=== PATIENT | female | born 1995 | race American Indian/Alaskan Native ===

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

== ENCOUNTER 2018-05-27 20:54 | Inpatient (IN) | payer OTHER ==
[2018-05-27] MEDS ORDERED: XYLOCAINE 2% INFILTRATI ONE (21:12)
[2018-05-27] MEDS ORDERED: MINERAL OIL PO PRN (21:12)
[2018-05-27] MEDS ORDERED: STADOL IV PRN (21:12)
[2018-05-27] MEDS ORDERED: AMPICILLIN/NS 2 GM/100 ML 2 GM/100 ML BAG IV ONE (21:12)
[2018-05-27] MEDS ORDERED: BRETHINE IVP PRN (21:12)
[2018-05-27] MEDS ORDERED: BRETHINE SUB-Q PRN (21:12)
[2018-05-27 21:37] LABS: Hematocrit 38.8 % (30.3-42.9); Hemoglobin 13.3 gm/dl (10.1-14.3); Mean Corpuscular HGB Conc 34 % (30-34); Mean Corpuscular Volume 88 fl (79-97); Platelet Count 212 K/mm3 (140-440); Red Cell Distribution Width 16.8 % (13.2-15.2)
[2018-05-27] MEDS ORDERED: PITOCin/NS 20 UNIT/1000ML DRIP 20 UNITS/1,000 ML BAG IV SCH (22:00)
[2018-05-27] MEDS ORDERED: LACTATED RINGERS 1,000 ML IV SCH (22:00)
[2018-05-27] MEDS ORDERED: XYLOCAINE MPF 2% ONE (22:37)
[2018-05-27] MEDS ORDERED: SUBLIMAZE ONE (22:37)
[2018-05-27] MEDS ORDERED: fentaNYL-BUPIV 2 MCG/ML-0.125% 200 MCG/100 ML BAG EPIDURAL SCH (23:00)
[2018-05-27] MEDS ORDERED: NARCAN 2 MG/2 ML IV PRN (23:00)
--- NOTE | 2018-05-27 23:00 | Anesthesia Consultation ---
Anesthesia Consult and Med Hx Date of service: 05/27/18 - Airway Anesthetic Teeth Evaluation: Good ROM Head & Neck: Adequate Mental/Hyoid Distance: Adequate Mallampati Class: Class I Intubation Access Assessment: Good - Pulmonary Exam CTA: Yes - Cardiac Exam Cardiac Exam: RRR - Pre-Operative Health Status ASA Pre-Surgery Classification: ASA2 Proposed Anesthetic Plan: Epidural - Pulmonary Hx Asthma: No Hx Respiratory Symptoms: No COPD: No Hx Pneumonia: No - Cardiovascular System Hx Hypertension: No Hx Coronary Artery Disease: No - Central Nervous System Hx Neuromuscular Disorder: No Hx Seizures: No Hx Psychiatric Problems: No - Gastrointestinal Hx Ulcer: No Hx Gastroesophageal Reflux Disease: No - Endocrine Hx Renal Disease: No Hx End Stage Renal Disease: No Hx Cirrhosis: No Hx Liver Disease: No Hx Insulin Dependent Diabetes: No Hx Non-Insulin Dependent Diabetes: No Hx Thyroid Disease: No Hx Hypothyroidism: No Hx Hyperthyroidism: No - Hematic Hx Anemia: Yes Hx Sickle Cell Disease: No - Other Systems Hx Alcohol Use: No Hx Substance Use: No Hx Cancer: No Hx Obesity: No
[2018-05-28] MEDS ORDERED: AMPICILLIN/NS 1 GM/50 ML 1 GM/50 ML BAG IV SCH (02:00)
[2018-05-28] MEDS ORDERED: XYLOCAINE MPF 2% ONE (03:18)
[2018-05-28] MEDS ORDERED: SUBLIMAZE ONE (03:18)
--- NOTE | 2018-05-28 03:38 | History and Physical Report ---
History of Present Illness Date of examination: 05/28/18 Date of admission: 05/27/18 21:15 Chief complaint: leakage of fluid History of present illness: 22y/o @ 38+3 weeks presents with leakage of fluid. The patient is having irregular uterine contractions. Her course is complicated by multiple STD exposures during the . Past History Past Medical History: no pertinent history Past Surgical History: no surgical history [employer] History: chlamydia, gonorrhea, herpes Social history: single - Obstetrical History Expected Date of Delivery: 06/08/18 Actual Gestation: 46 Week(s) 4 Day(s) : 1 Para: 0 Hx # Term Pregnancies: 0 Number of Pregnancies: 0 Spontaneous Abortions: 0 Induced : 0 Number of Living Children: 0 Medications and Allergies Allergies Allergy/AdvReac Type Severity Reaction Status Date / Time No Known Allergies Allergy Verified 06/16/16 16:17 Home Medications Medication Instructions Recorded Confirmed Last Taken Type Ferrous Sulfate [Iron] 325 mg PO DAILY 05/26/18 05/26/18 05/25/18 History Vit,Calc76/Iron/Folic 1 tab PO DAILY 05/26/18 05/26/18 05/25/18 History [Pnv 29-1 Tablet] metroNIDAZOLE [Flagyl] 500 mg PO Q12HR 05/26/18 05/26/18 05/25/18 History valACYclovir [Valtrex] 500 mg PO BID 05/26/18 05/26/18 05/25/18 History HYDROcodone/APAP 5-325 [[place] 1 each PO Q6HR PRN #20 tablet 05/29/18 Unknown Rx 5/325] Ibuprofen [Motrin] 800 mg PO Q8HR PRN #60 tablet 05/29/18 Unknown Rx Active Meds: Active Medications Butorphanol Tartrate (Stadol) 2 mg IV Q2H PRN PRN Reason: Pain , Severe (7-10) Last Admin: 05/27/18 21:35 Dose: 2 mg Documented by: Ephedrine Sulfate (Ephedrine Sulfate) 10 mg IV Q2M PRN PRN Reason: Hypotension Lactated Ringer's (Lactated Ringers) 1,000 mls @ 125 mls/hr IV DIRECT ANITA Last Admin: 05/27/18 21:30 Dose: 125 mls/hr Documented by: Oxytocin/Sodium Chloride (Pitocin/Ns 20 Unit/1000ml Drip) 20 units in 1,000 mls @ 125 mls/hr IV DIRECT ANITA Ampicillin Sodium (Ampicillin/Ns 1 Gm/50 Ml) 1 gm in 50 mls @ 100 mls/hr IV Q4HR ANITA; Protocol Last Admin: 05/28/18 01:43 Dose: 100 mls/hr Documented by: Fentanyl/Bupivacaine/Sodium Chlor (Fentanyl-Bupiv 2 Mcg/Ml-0.125%) 200 mcg in 100 mls @ 12 mls/hr EPIDURAL TITR ANITA; Protocol Last Admin: 05/27/18 23:11 Dose: 12 mls/hr Documented by: Mineral Oil (Mineral Oil) 30 ml PO QHS PRN PRN Reason: Constipation Naloxone HCl (Narcan 2 Mg/2 Ml) 0.2 mg IV Q5M PRN PRN Reason: Respiratory sedation Terbutaline Sulfate (Brethine) 0.25 mg SUB-Q ONCE PRN PRN Reason: Hyperstimulation/Hypertonicity Terbutaline Sulfate (Brethine) 0.25 mg IVP ONCE PRN PRN Reason: Hyperstimulation/Hypertonicity Review of Systems All systems: negative Genitourinary: leakage of fluid, contractions - Vital Signs Vital signs: Vital Signs Temp Pulse Resp BP 98.6 F 75 22 113/60 05/27/18 20:55 05/27/18 20:55 05/27/18 20:55 05/27/18 20:55 Temp Pulse Resp BP Pulse Ox 99.0 F 98 H 18 109/82 100 05/28/18 01:02 05/28/18 03:37 05/28/18 01:02 05/28/18 03:26 05/28/18 03:37 - Physical Exam Breasts: Positive: deferred Cardiovascular: Regular rate Lungs: Positive: Clear to auscultation Abdomen: Positive: normal appearance Results Result Diagrams: 05/28/18 15:35 Abnormal lab results 05/27/18 Range/Units 21:30 RDW 16.8 H (13.2-15.2) % All other labs normal. Assessment and Plan - Patient Problems (1) Spontaneous rupture of membranes Status: Acute Plan to address problem: admit to L&D
--- NOTE | 2018-05-28 04:53 | Procedure Note ---
OB Delivery Note - Delivery Date of Delivery: 05/28/18 Surgeon: YIMI ROJAS Estimated blood loss: 200cc - Vaginal Delivery presentation: vertex Delivery position: OA Intrapartum events: none Delivery monitor: external FHT Route of delivery: Delivery placenta: spontaneous Delivery cord: 3 umbilical vessels Episiotomy: none Delivery laceration: 1st degree Delivery repair: vicryl Anesthesia: epidural Delivery comments: Patient progressed to C/C/+1 and pushed to deliver a liveborn female with apgars of 7/8. After the infant was delivered, the was immediately placed on the patient's abdomen. Delivery was at 0433. The delivery was performed by the patient's nurse secondary to her rapid progression. The cord was then clamped and cut. The placenta delivered spontaneously intact with a 3VC at 0437. The patient sustained a midline first degree laceration repaired with 2-0 vicryl. Weight 7lbs 2oz. EBL 200ml. - Infant A at 1 minute: 7 at 5 minutes: 8 Gender: Female (weight 7lbs 2oz)
[2018-05-28] MEDS ORDERED: ZOFRAN IV PRN (04:54)
[2018-05-28] MEDS ORDERED: PHENERGAN PO PRN (04:54)
[2018-05-28] MEDS ORDERED: TYLENOL PO PRN (04:54)
[2018-05-28] MEDS ORDERED: DULCOLAX PR PRN (04:54)
[2018-05-28] MEDS ORDERED: PHENERGAN PR PRN (04:54)
[2018-05-28] MEDS ORDERED: BENADRYL PO PRN (04:54)
[2018-05-28] MEDS ORDERED: MILK OF MAGNESIA PO PRN (04:54)
[2018-05-28] MEDS ORDERED: TUCKS PAD TP PRN (04:54)
[2018-05-28] MEDS ORDERED: LANSINOH TP PRN (04:54)
[2018-05-28] MEDS ORDERED: NORCO 5/325 PO PRN (04:54)
[2018-05-28] MEDS ORDERED: SODIUM CHLORIDE FLUSH SYRINGE 10 ML IV PRN (05:00)
[2018-05-28] MEDS: IBUPROFEN PO SCH ×4 (06:21→23:47)
--- NOTE | 2018-05-28 08:19 | Post Anesthesia Evaluation ---
- Post Anesthesia Evaluation Patient Participated: Yes Airway Patent: Yes Stable Respiratory Function: Yes Nausea/Vomiting: No Temp > 96.8F: Yes Pain Manageable: Yes Adequeate Hydration: Yes Anesthesia Complications: No Block Receding Appropriately: Yes Patient on Ventilator: Yes
[2018-05-28] MEDS ORDERED: SUBLIMAZE IV ONE (09:00)
[2018-05-28 16:02] LABS: Hematocrit 30.7 % (30.3-42.9); Hemoglobin 10.3 gm/dl (10.1-14.3)
[2018-05-28] MEDS ORDERED: ROBITUSSIN PO PRN (18:29)
[2018-05-29] MEDS: IBUPROFEN PO SCH ×2 (06:57→12:22)
--- NOTE | 2018-05-29 08:51 | Progress Note ---
Assessment and Plan - Patient Problems (1) Spontaneous rupture of membranes Current Visit: Yes Status: Acute Plan to address problem: patient doing well discharge home Subjective - Subjective Date of service: 05/29/18 Interval history: Patient without complaints. States she is feeling well. Pain well controlled Patient reports: appetite normal, voiding normally, pain well controlled [place]: doing well, nursing well Objective - Vital Signs Latest vital signs: Vital Signs Temp Pulse Resp BP 05/29/18 00:30 98.6 F 64 18 104/78 05/28/18 19:30 98.7 F 77 18 114/79 05/28/18 15:41 98.1 F 79 18 112/58 Intake and Output 05/28/18 05/29/18 05/29/18 22:59 06:59 14:59 Intake Total 360 300 Output Total 500 Balance -140 300 Intake: Oral 360 Intake, Free Water 300 Output: Urine 500 Void 500 Other: Total, Intake Amount 360 Total, Output Amount 300 # Voids Void 2 - Exam Uterus: Present: normal, firm
--- NOTE | 2018-05-29 08:52 | Discharge Summary ---
Providers - Providers Date of Admission: 05/27/18 21:15 Date of discharge: 05/29/18 Attending physician: YIMI ROJAS Primary care physician: YIMI ROJAS Hospitalization Reason for admission: active labor, rupture of membranes Delivery: Discharge diagnosis: IUP at term delivered baby: female Hospital course: Patient admitted with SROM and contractions. Had a . unremarkable Condition at discharge: Good Disposition: DC-01 TO HOME OR SELFCARE - Discharge Diagnoses (1) Spontaneous rupture of membranes Status: Acute Plan - Discharge Medications Prescriptions: HYDROcodone/APAP 5-325 [[place] 5/325] 1 each PO Q6HR PRN #20 tablet PRN Reason: Pain Ibuprofen [Motrin] 800 mg PO Q8HR PRN #60 tablet PRN Reason: Pain, Mild (1-3) - Provider Discharge Summary Activity: no sex for 6 weeks, no heavy lifting 4 weeks, no strenuous exercise Diet: routine Instructions: routine Additional instructions: [] Smoking cessation referral if applicable(refer to patient education folder for contact #) [] Refer to [facility] Booklet Call your doctor immediately for: * Fever > 100.5 * Heavy vaginal bleeding ( >1 pad per hour) * Severe persistent headache * Shortness of breath * Reddened, hot, painful area to leg or breast * schedule followup in 4 weeks - Follow up plan
[2018-05-29 17:28] VITALS: BP 114/68
== END 2018-05-29 17:15 | disposition home or self-care (01) | DRG 775 ==
LOC: TRG 20:54 → LD 21:15 → OB 05-28 08:03
PROVIDERS: ADMIT Obstetrics & Gynecology; ATTEND Obstetrics & Gynecology
PROC: 10E0XZZ Delivery of Products of Conception, External Approach (ICD-10-PCS; principal; 2018-05-28)
PROC: 3E0R3BZ Introduction of Anesthetic Agent into Spinal Canal, Percutaneous Approach (ICD-10-PCS; 2018-05-28)
PROC: 00HU33Z Insertion of Infusion Device into Spinal Canal, Percutaneous Approach (ICD-10-PCS; 2018-05-28)
PROC: 0HQ9XZZ Repair Perineum Skin, External Approach (ICD-10-PCS; 2018-05-28)
DX: O70.0 First degree perineal laceration during delivery (principal); Z3A.38 38 weeks gestation of pregnancy; Z37.0 Single live birth; Z79.899 Other long term (current) drug therapy
CPT/HCPCS: 36415; 59025; 76815; 76819; 85014; 85018; 85027; 86592; 86850; 86900; 86901; G0378; A6250; J0290; J0595; J2590; J3010; J7120